=== PATIENT | male | born 1950 | race Caucasian/White ===

== ENCOUNTER 2017-02-04 16:10 | Emergency (ER) | payer MEDICARE, OTHER ==
[2017-02-04] MEDS ORDERED: ACETAMINOPHEN 325 MG TABLET PO ONE (17:07)
[2017-02-04] MEDS ORDERED: CYCLOBENZAPRINE HCL 10 MG TABLET PO ONE (17:08)
--- NOTE | 2017-02-04 17:12 | ER Document Report ---
ED Medical Screen (RME) - General Chief Complaint: Chest Pain Stated Complaint: CHEST PAIN Notes: This 66-year-old male patient reports he was working on his bike when he dropped a screw pizza driver. He reached over to pick it up off the floor and felt a sharp pain in the right anterior medial inferior rib margin near the xiphoid. He also noticed this pain when he went to walk up steps. On exam it is quite tender to palpate the involved area. I have greeted and performed a rapid initial assessment of this patient. A comprehensive ED assessment and evaluation of the patient, analysis of test results and completion of the medical decision making process will be conducted by additional ED providers. TRAVEL OUTSIDE OF THE [place] IN LAST 30 DAYS: No - Related Data Allergies/Adverse Reactions: oxycodone [Oxycodone] Allergy (Verified 02/04/17 16:35) Past Medical History - Past Medical History Cardiac Medical History: Denies: Hx Hypercholesterolemia, Hx Hypertension Pulmonary Medical History: Reports: Hx COPD, Hx Pneumonia Renal/ Medical History: Denies: Hx Peritoneal Dialysis - Immunizations Hx Diphtheria, Pertussis, Tetanus Vaccination: Yes Physical Exam - Vital signs Vitals: Temp Pulse Resp BP Pulse Ox 98.2 F 76 20 132/69 H 95 02/04/17 16:37 02/04/17 16:37 02/04/17 16:37 02/04/17 16:37 02/04/17 16:37 Course - Vital Signs Vital signs: Temp Pulse Resp BP Pulse Ox 98.2 F 76 20 132/69 H 95 02/04/17 16:37 02/04/17 16:37 02/04/17 16:37 02/04/17 16:37 02/04/17 16:37
--- NOTE | 2017-02-04 19:11 | ER Document Report ---
HPI - HPI Pain Level: 5 Context: Patient is a 58-year-old male presents emergency Department complaining of right -sided chest pain. Patient states he was bending over to pick something up and he felt a popping burning sensation in his chest. He was reproducible to palpation when he had it Patient states that the pain has since resolved. Otherwise he denies any other pain. Patient denies any left or right arm pain, jaw pain, back pain, burning substernal pain or shortness of breath or difficulty breathing. Patient denies any history of coronary artery disease. States that he has never had a coronary catheter, stress test. - DERM Skin Color: Normal Past Medical History - Social History Smoking Status: Current Every Day Smoker Family History: Reviewed & Not Pertinent Patient has suicidal ideation: No Patient has homicidal ideation: No - Past Medical History Cardiac Medical History: Denies: Hx Hypercholesterolemia, Hx Hypertension Pulmonary Medical History: Reports: Hx COPD, Hx Pneumonia Renal/ Medical History: Denies: Hx Peritoneal Dialysis - Immunizations Hx Diphtheria, Pertussis, Tetanus Vaccination: Yes Hx Pneumococcal Vaccination: 10/27/08 Vertical Provider Document - CONSTITUTIONAL Agree With Documented VS: Yes Exam Limitations: No Limitations General Appearance: WD/WN, No Apparent Distress Notes: PHYSICAL EXAM GENERAL: Alert, interacts well. HEAD: Normocephalic, atraumatic. EYES: Pupils equal, round, and reactive to light. Extraocular movements intact. ENT: Oral mucosa moist, tongue midline. NECK: Full range of motion. Supple. Trachea midline. LUNGS: Clear to auscultation bilaterally, no wheezes, rales, or rhonchi. No respiratory distress. HEART: Regular rate and rhythm. No murmurs, gallops, or rubs. ABDOMEN: Soft, nondistended, nontender. No guarding, rebound, or rigidity.. Bowel sounds present in all 4 quadrants. EXTREMITIES: Moves all 4 extremities spontaneously. No edema, radial and dorsalis pedis pulses 2/4 bilaterally. No cyanosis. NEUROLOGICAL: Alert and oriented x4. Normal speech. PSYCH: Normal affect, normal mood. SKIN: Warm, dry, normal turgor. No rashes or lesions noted. - INFECTION CONTROL TRAVEL OUTSIDE OF THE [place] IN LAST 30 DAYS: No - RESPIRATORY O2 Sat by Pulse Oximetry: 95 Course - Re-evaluation Re-evalutation: 02/04/17 21:56 Patient is a 66-year-old male with findings consistent with chest wall pain due to muscle strain. Patient is very well in appearance, vitals within normal limits. Low clinical suspicion for ACS given clinical history, exam, EKG without ST elevations or depressions, and negative initial troponin. HEART score less than or equal to 3. PE also seems unlikely given clinical history, absence of tachycardia or dyspnea. Well's score of 0. CXR without evidence of pneumothorax or pneumonia. No widened mediastinum. Aortic dissection also seems unlikely given history, symmetric pulses, CXR, and vitals. At this time will discharge with return precautions and follow-up recommendations. Verbal discharge instructions given a the bedside and opportunity for questions given. Medication warnings reviewed. Patient is in agreement with this plan and has verbalized understanding of return precautions and the need for primary care follow-up in the next 24-72 hours. - Vital Signs Vital signs: Temp Pulse Resp BP Pulse Ox 98.2 F 76 20 132/69 H 95 02/04/17 16:37 02/04/17 16:37 02/04/17 16:37 02/04/17 16:37 02/04/17 16:37 - Diagnostic Test Radiology reviewed: Image reviewed - Evidence of chronic scarring from atelectasis secondary to COPD noted on right lower aspect of the lung consistent with findings and CT from 6 months ago., Reports reviewed - EKG Interpretation by Me EKG shows normal: Sinus rhythm Rate: Normal Rhythm: NSR When compared to previous EKG there are: Previous EKG unavailable Discharge - Discharge Clinical Impression: Chest wall pain Condition: Good Disposition: HOME, SELF-CARE Additional Instructions: NORMAL EXAM AND WORKUP: At this time, your examination and workup show no significant abnormality. No significant abnormal physical findings were noted. All laboratory, EKG, and imaging (x-ray, CT scans, ultrasound) studies that were ordered show no significant abnormality. Although your examination and all studies that were ordered showed no significant abnormal finding, there are no examinations and no studies that are 100% accurate. There is always the possibility that some abnormality could exist and not be detected with physical examination or within the limits and capabilities of laboratory and other studies. You should return or follow up as you were instructed on your visit today for further evaluation if your symptoms do not resolve. CHEST WALL PAIN: Your chest pain may be coming from the chest wall. This is often caused by straining the muscles or joints in the chest during physical activity, direct trauma, coughing, or vigorous vomiting. Persons with arthritis are especially prone to this type of pain, due to inflammation of the cartilage joints near the breast bone. Occasionally, no cause can be found. Rest from strenuous physical activity. This kind of chest pain is usually made worse by movement of the chest. Depending on the symptoms, we may prescribe medicine for pain, muscle relaxation, and antiinflammatory effects. If the pain is new, and seems to be due to muscle strain, cold packs can help. Otherwise, apply gentle warmth to the painful area for 15 minutes every hour or two. You should call contact the doctor immediately if things change. Further evaluation is needed if you develop a fever or cough, if the nature of the pain changes, or if you become short of breath. FOLLOW-UP CARE: If you have been referred to a physician for follow-up care, call the physician s office for an appointment as you were instructed or within the next two days. If you experience worsening or a significant change in your symptoms, notify the physician immediately or return to the Emergency Department at any time for re-evaluation. Referrals: RUTHANN ROQUE PA [NO LOCAL MD] - Follow up in 1 week
[2017-02-05 00:13] VITALS: BP 133/60
--- NOTE | 2017-02-05 14:19 | EKG REPORT ---
SEVERITY:- NORMAL ECG - SINUS RHYTHM : Confirmed by: Lucho Escalona MD 05-Feb-2017 14:18:24
== END 2017-02-04 19:25 | disposition home or self-care (01) ==
LOC: ER 16:10
DX: R07.89 Other chest pain (principal); F17.200 Nicotine dependence, unspecified, uncomplicated
CPT/HCPCS: 93005; 99285; 71020; 93010; A9270 ×2

== ENCOUNTER 2017-03-21 09:22 | Emergency (ER) | payer OTHER, MEDICARE ==
[2017-03-21] MEDS ORDERED: HYDROCODONE/ACETAMINOPHEN 5-325 MG TABLET PO ONE (10:19)
[2017-03-21] MEDS ORDERED: ALBUTEROL SULFATE 0.083% NEB 2.5 MG/3 ML AMPUL NEB ONE (10:21)
--- NOTE | 2017-03-21 11:15 | RADIOLOGY REPORT (SQ) ---
EXAM DESCRIPTION: RIBS RIGHT W/PA CHEST COMPLETED DATE/TIME: 03/21/2017 10:56 am REASON FOR STUDY: right rib pain COMPARISON: 02/04/2017. TECHNIQUE: Frontal view of the chest and additional views of the right ribs acquired. NUMBER OF VIEWS: Three view. LIMITATIONS: None. FINDINGS: FRONTAL CXR: No pneumothorax. No infiltrate. No mass. There is a minimal right pleural effusion, and there is mild scarring in the right lung. RIBS: There is a fracture of the distal 9th rib on the right. There appears to be a small amount of callus around this fracture suggesting that it is subacute. OTHER: No other significant finding. IMPRESSION: 1. Subacute fracture of the right 9th rib. 2. There is a minimal right pleural effusion and pulmonary scarring on the right. COMMENT: SITE OF TRAUMA/COMPLAINT MARKED/STAMP COMPLETED: No TECHNICAL DOCUMENTATION: JOB ID: [id number] [employer]- All Rights Reserved
--- NOTE | 2017-03-21 11:42 | ER Document Report ---
HPI - HPI Patient complains to provider of: right rib pain Onset: This morning Onset/Duration: Sudden Quality of pain: Sharp Severity: Moderate Pain Level: 4 Context: Patient states he was coughing this morning and felt a pop in his right rib area. Denies increased shortness of breath. Associated Symptoms: Productive cough, Hurts to breath, Shortness of breath - Patient states this is normal for him, he has COPD. denies: Fever Exacerbated by: Coughing, Deep breathing Relieved by: Remaining still Similar symptoms previously: No Recently seen / treated by doctor: Yes - Saw Dr. Ríos yesterday - ROS ROS below otherwise negative: Yes Systems Reviewed and Negative: Yes All other systems reviewed and negative - CONSTITUTIONAL Constitutional: DENIES: Fever - EENT EENT: DENIES: Congestion - NEURO Neurology: DENIES: Headache - CARDIOVASCULAR Cardiovascular: REPORTS: Chest pain - Right sided ribs - RESPIRATORY Respiratory: REPORTS: Coughing. DENIES: Trouble Breathing - GASTROINTESTINAL Gastrointestinal: DENIES: Abdominal Pain - URINARY Urinary: DENIES: Dysuria - MUSCULOSKELETAL Musculoskeletal: DENIES: Extremity pain - DERM Skin Color: Normal Skin Problems: None Past Medical History - General Information source: Patient - Social History Smoking Status: Current Every Day Smoker Frequency of alcohol use: None Drug Abuse: None Lives with: Spouse/Significant other Family History: Reviewed & Not Pertinent Patient has suicidal ideation: No Patient has homicidal ideation: No Pulmonary Medical History: Reports: Hx COPD, Hx Pneumonia Surgical Hx: Negative - Immunizations Hx Diphtheria, Pertussis, Tetanus Vaccination: Yes Hx Pneumococcal Vaccination: 10/27/08 Vertical Provider Document - CONSTITUTIONAL Agree With Documented VS: Yes Exam Limitations: No Limitations General Appearance: WD/WN, No Apparent Distress - INFECTION CONTROL TRAVEL OUTSIDE OF THE [place] IN LAST 30 DAYS: No - HEENT HEENT: Atraumatic, Normal ENT Exam, Normocephalic - NECK Neck: Normal Inspection - RESPIRATORY Respiratory: No Respiratory Distress, Rhonchi, Wheezing O2 Sat by Pulse Oximetry: 92 Notes: Right lateral ribs tender to palpation. Patient reports increased pain with deep breathing during exam. - CARDIOVASCULAR Cardiovascular: Regular Rate, Regular Rhythm - GI/ABDOMEN Gastrointestinal: Abdomen Soft - MUSCULOSKELETAL/EXTREMETIES Musculoskeletal/Extremeties: MAEW - NEURO Level of Consciousness: Awake, Alert, Appropriate - DERM Integumentary: Warm, Dry Course - Re-evaluation Re-evalutation: 03/21/17 11:41 X-ray showed subacute ninth right rib fracture, small pleural effusion and pulmonary scarring. Findings were discussed with the patient. 03/21/17 11:53 lungs still with expiratory wheezing after neb, no rhonchi. - Vital Signs Vital signs: Temp Pulse Resp BP Pulse Ox 98 F 79 20 126/70 H 92 03/21/17 09:49 03/21/17 09:49 03/21/17 09:49 03/21/17 09:49 03/21/17 09:49 Discharge - Discharge Clinical Impression: Productive cough Right rib fracture Qualifiers: Encounter type: initial encounter Rib fracture type: single rib Fracture type: closed Qualified Code(s): S22.31XA - Fracture of one rib, right side, initial encounter for closed fracture COPD (chronic obstructive pulmonary disease) Qualifiers: COPD type: unspecified COPD Qualified Code(s): J44.9 - Chronic obstructive pulmonary disease, unspecified Condition: Good Disposition: HOME, SELF-CARE Instructions: Chest Wall Pain ([facility]) Additional Instructions: Take medications as prescribed Splint ribs with coughing and deep breathing Nebs as previously prescribed by your doctor Follow-up with your doctor next week for recheck Return if worsens and as needed. Prescriptions: Azithromycin [Zithromax 250 mg Tablet] 250 mg PO ASDIR PRN #6 tablet PRN Reason: Hydrocodone/Acetaminophen [[place]ne 5-325 mg Tablet] 1 tab PO PRN PRN #15 tablet PRN Reason: Referrals: WHITNEY RÍOS MD [Primary Care Provider] - Follow up as needed
[2017-03-21 12:15] VITALS: BP 144/60
== END 2017-03-21 12:15 | disposition home or self-care (01) ==
LOC: ER 09:22
DX: S22.31XA Fracture of one rib, right side, initial encounter for closed fracture (principal); J44.9 Chronic obstructive pulmonary disease, unspecified; R05 Cough; R07.81 Pleurodynia; F17.200 Nicotine dependence, unspecified, uncomplicated; X58.XXXA Exposure to other specified factors, initial encounter
CPT/HCPCS: 94640; 99284

== ENCOUNTER 2017-04-04 22:21 | Emergency (ER) | payer OTHER, MEDICARE ==
[2017-04-04 22:28] VITALS: BP 148/91
[2017-04-04] MEDS ORDERED: IPRATROPIUM/ALBUTEROL 0.5-2.5 MG/3 ML AMPUL NEB ONE (22:28)
[2017-04-04] MEDS ORDERED: ALBUTEROL SULFATE 0.083% NEB 2.5 MG/3 ML AMPUL NEB SCH (22:43)
[2017-04-05] MEDS ORDERED: LIDOCAINE 5% (700 MG) TRANSDERMAL ADH..PATCH TP ONE (01:24)
[2017-04-05] MEDS ORDERED: BENZONATATE 100 MG CAPSULE PO ONE (01:24)
[2017-04-05] MEDS ORDERED: IPRATROPIUM/ALBUTEROL 0.5-2.5 MG/3 ML AMPUL NEB ONE (01:24)
--- NOTE | 2017-04-05 01:30 | ER Document Report ---
ED General - General Chief Complaint: Shortness Of Breath Stated Complaint: DIFFICULTY BREATHING Time Seen by Provider: 04/05/17 00:58 Notes: Patient is a 66-year-old male with past medical history of COPD, has quit smoking in the past 2 weeks recently diagnosed with a right rib fracture secondary to spasms of coughing who presents with ongoing right rib pain as well as mild shortness of breath. Patient states that the pain had overall been controlled until he ran out of [place]. He also notes that his coughing was well-controlled while on this medication. He has not had worsening of his symptoms. He does describe the pain in his right rib as a severe, constant, stabbing pain. States coughing, moving or taking a deep breath worsens the pain. He did follow-up with his primary care doctor regarding today's concerns. He is been using inhaler at home for his shortness of breath with some improvement. Denies any hemoptysis, history of DVT or pulmonary embolus. No new injury. TRAVEL OUTSIDE OF THE [place] IN LAST 30 DAYS: No - Related Data Allergies/Adverse Reactions: budesonide [From Symbicort] Allergy (Verified 03/21/17 11:55) formoterol [From Symbicort] Allergy (Verified 03/21/17 11:55) naproxen Allergy (Verified 03/21/17 11:55) Past Medical History - General Information source: Patient - Social History Smoking Status: Former Smoker Frequency of alcohol use: None Drug Abuse: None Lives with: Spouse/Significant other Family History: Reviewed & Not Pertinent Patient has suicidal ideation: No Patient has homicidal ideation: No - Past Medical History Cardiac Medical History: Denies: Hx Hypercholesterolemia, Hx Hypertension Pulmonary Medical History: Reports: Hx COPD, Hx Pneumonia Renal/ Medical History: Denies: Hx Peritoneal Dialysis - Immunizations Hx Diphtheria, Pertussis, Tetanus Vaccination: Yes Hx Pneumococcal Vaccination: 10/27/08 Review of Systems - Review of Systems Notes: Constitutional: Negative for fever. HENT: Negative for sore throat. Eyes: Negative for visual changes. Cardiovascular: Negative for chest pain. Respiratory: Positive for shortness of breath. Gastrointestinal: Negative for abdominal pain, vomiting or diarrhea. Genitourinary: Negative for dysuria. Musculoskeletal: Positive for right lower rib pain Skin: Negative for rash. Neurological: Negative for headaches, weakness or numbness. 10 point ROS negative except as marked above and in HPI. Physical Exam - Vital signs Vitals: Temp Pulse Resp BP Pulse Ox 97.5 F 90 24 H 148/91 H 97 04/04/17 22:26 04/04/17 22:26 04/04/17 22:26 04/04/17 22:26 04/04/17 22:26 Interpretation: Tachypneic Notes: PHYSICAL EXAMINATION: GENERAL: Well-appearing, well-nourished and in no acute distress. HEAD: Atraumatic, normocephalic. EYES: Pupils equal round and reactive to light, extraocular movements intact, sclera anicteric, conjunctiva are normal. ENT: nares patent, oropharynx clear without exudates. Moist mucous membranes. NECK: Normal range of motion, supple without lymphadenopathy LUNGS: Breath sounds clear to auscultation bilaterally and equal. Faint expiratory wheezing in all lung guzman. No respiratory distress or tachypnea. HEART: Regular rate and rhythm without murmurs Chest wall: Focal pain on palpation of the right lower ribs ABDOMEN: Soft, nontender, normoactive bowel sounds. No guarding, no rebound. No masses appreciated. EXTREMITIES: Normal range of motion, no pitting or edema. No cyanosis. NEUROLOGICAL: No focal neurological deficits. Moves all extremities spontaneously and on command. PSYCH: Normal mood, normal affect. SKIN: Warm, Dry, normal turgor, no rashes or lesions noted. Course - Re-evaluation Re-evalutation: 04/05/17 01:27 Presents with ongoing right lower rib pain secondary to coughing in the setting of a known rib fracture and an ongoing COPD exacerbation. Patient initially presented with mild tachypnea which should resolve after single nebulizer treatment. He maintained slight expiratory wheezing without any diminished air movement, hypoxia or tachypnea. Patient does have point tenderness over the lower right ribs. He will be started on a course of prednisone, provided Tessalon Perles for his persistent cough, and I have encouraged him to begin applying topical lidocaine to the affected area. Patient has nebulizers at home. I do not suspect an acute alternative pathology at this time based on history and exam including acute pulmonary embolus, ACS, pneumothorax, or aortic dissection. At this time will discharge with return precautions and follow-up recommendations. Verbal discharge instructions given a the bedside and opportunity for questions given. Medication warnings reviewed. Patient is in agreement with this plan and has verbalized understanding of return precautions and the need for primary care follow-up in the next 24-72 hours. - Vital Signs Vital signs: Temp Pulse Resp BP Pulse Ox 97.5 F 90 24 H 148/91 H 97 04/04/17 22:26 04/04/17 22:26 04/04/17 22:26 04/04/17 22:26 04/04/17 22:26 - Diagnostic Test Radiology reviewed: Image reviewed, Reports reviewed Radiology results interpreted by me: 04/05/17 01:28 Chest x-ray: Acute infiltrate or pneumothorax. Discharge - Discharge Clinical Impression: Shortness of breath, Rib pain on right side Condition: Good Disposition: HOME, SELF-CARE Additional Instructions: Your chest wall pain is due to a fracture 1 of the ribs. This pain can last for up to 6 weeks. It is very important that you continue to take purposeful deep breaths. For your pain: Continue to take ibuprofen 600 mg every 6 hours or Tylenol 1000 mg every 6 hours. Apply local lidocaine to the area per bottle instructions. There is a product sold [id number] called "Aspercreme with lidocaine" that you can use for this purpose. Please follow-up with her primary care doctor in the next 2-3 days. Return to the emergency department immediately if you develop worsening shortness of breath, increased pain, begin coughing blood, pass out, or have any other symptoms that are worrisome to you. Take the steroids that have been prescribed for the next 5 days. You can use the Tessalon Perles that were prescribed as needed for persistent coughing. Referrals: WHITNEY RÍOS MD [Primary Care Provider] - Follow up as needed
--- NOTE | 2017-04-05 01:32 | RADIOLOGY REPORT (SQ) ---
EXAM DESCRIPTION: CHEST SINGLE VIEW COMPLETED DATE/TIME: 04/05/2017 1:08 am REASON FOR STUDY: shortness of breath COMPARISON: 02/04/2017. 11/02/2014. 06/24/2011. CT, 09/13/2016. EXAM PARAMETERS: NUMBER OF VIEWS: One view. TECHNIQUE: Single frontal radiographic view of the chest acquired. RADIATION DOSE: NA LIMITATIONS: None. FINDINGS: LUNGS AND PLEURA: Minimal scar of the right mid -lower lung field. Small chronic blunting of the right costophrenic angle. Small right lower lobar -basilar opacity consistent with fibrosis -scar and prior CT, 09/13/2016. No suspicious interval change. MEDIASTINUM AND HILAR STRUCTURES: No masses. Contour normal. HEART AND VASCULAR STRUCTURES: Mild obscuration of the right cardiophrenic margin, chronic. BONES: No acute findings. HARDWARE: None in the chest. OTHER: No other significant finding. IMPRESSION: No acute cardiopulmonary findings. TECHNICAL DOCUMENTATION: JOB ID: [id number]
--- NOTE | 2017-04-07 09:56 | EKG REPORT ---
SEVERITY:- NORMAL ECG - SINUS RHYTHM : Confirmed by: Vladimir Bhat 07-Apr-2017 09:54:13
== END 2017-04-05 02:19 | disposition home or self-care (01) ==
LOC: ER 22:21
DX: R06.02 Shortness of breath (principal); R07.81 Pleurodynia; J44.9 Chronic obstructive pulmonary disease, unspecified; S22.31XG Fracture of one rib, right side, subsequent encounter for fracture with delayed healing; X58.XXXD Exposure to other specified factors, subsequent encounter; Z87.891 Personal history of nicotine dependence
CPT/HCPCS: 93005; 94640; 99285; 71010; 93010; J7620

== ENCOUNTER 2017-04-08 09:10 | Emergency (ER) | payer OTHER, MEDICARE ==
[2017-04-08] MEDS ORDERED: IPRATROPIUM/ALBUTEROL 0.5-2.5 MG/3 ML AMPUL NEB ONE (09:31)
--- NOTE | 2017-04-08 09:38 | ER Document Report ---
ED Medical Screen (RME) - General Chief Complaint: Chest Pain Stated Complaint: CHEST PAIN Time Seen by Provider: 04/08/17 09:28 Mode of Arrival: Wheelchair Information source: Patient Notes: This is a 66-year-old male with a history of COPD who presents with chest pain. He states that the pain is sharp, worse with movement or deep breath, and located in the left anterior chest. The pain began suddenly yesterday at about 6:30 PM as he bent over to pick something up. Note he was seen here recently with right rib fracture from coughing. He denies fevers or chills. I have greeted and performed a rapid initial assessment of this patient. A comprehensive ED assessment and evaluation of the patient, analysis of test results and completion of the medical decision making process will be conducted by additional ED providers. TRAVEL OUTSIDE OF THE [place] IN LAST 30 DAYS: No - Related Data Allergies/Adverse Reactions: budesonide [From Symbicort] Allergy (Verified 04/08/17 09:21) formoterol [From Symbicort] Allergy (Verified 04/08/17 09:21) naproxen Allergy (Verified 04/08/17 09:21) Past Medical History - Past Medical History Cardiac Medical History: Denies: Hx Hypercholesterolemia, Hx Hypertension Pulmonary Medical History: Reports: Hx COPD, Hx Pneumonia Renal/ Medical History: Denies: Hx Peritoneal Dialysis - Immunizations Hx Diphtheria, Pertussis, Tetanus Vaccination: Yes Physical Exam - Vital signs Vitals: Temp Pulse Resp BP Pulse Ox 98.1 F 66 24 H 186/97 H 94 04/08/17 09:21 04/08/17 09:21 04/08/17 09:21 04/08/17 09:21 04/08/17 09:21 - General Notes: mild respiratory distress, uncomfortable secondary to pain, pleasant and conversant - Respiratory Notes: scattered wheezes bilaterally, tachypneic Course - Vital Signs Vital signs: Temp Pulse Resp BP Pulse Ox 98.1 F 66 24 H 186/97 H 94 04/08/17 09:21 04/08/17 09:21 04/08/17 09:21 04/08/17 09:21 04/08/17 09:21
[2017-04-08] MEDS ORDERED: ASPIRIN 81 MG TABLET, CHEWABLE PO ONE (09:50)
--- NOTE | 2017-04-08 10:08 | ER Document Report ---
ED Cardiac - General Chief Complaint: Chest Pain Stated Complaint: CHEST PAIN Time Seen by Provider: 04/08/17 09:28 Mode of Arrival: Wheelchair Notes: Patient is a 66-year-old male with a history of COPD who comes to the ED complaining of left-sided chest pain and shortness of breath. Pt states that he does cough, but has been resisting due to the pain it causes in the chest. When he is able to cough he is able to get some white sputum. Patient states that he was seen March 21 for a COPD exacerbation he was placed on antibiotics at that time because he was coughing so hard that he fractured a rib on his right side. He returned 3 days ago with worsening sob and chest wall pain. At that time no antibiotics were clinically warranted based on his presentation. Patient states that the chest pain began when he bent over to pick something up yesterday evening. The pain is described as sharp. Pain does not radiate. Patient states that initially he was able to push on his chest and the pain would go away, but now the pain is persistent despite pressure. Pt states that he is still eating/drinking with no problems. Last BM was normal and 1.5 days ago. Urinating normally per patient. He has been using his inhalers at home without relief. Pt denies any PMH of aneurysms, CVA, MA, PE. Denies any leg/ calf pains. Denies any fever, nasal rory/discharge, sore throat, ear pain, dizziness, syncope, palpitations, abd pain, n/v/d, dysuria, muscle weakness, or rash. TRAVEL OUTSIDE OF THE [place] IN LAST 30 DAYS: No - HPI Patient complains to provider of: Chest pain, Shortness of breath Use of: denies: Alcohol, Amphetamines, Bath salts, Caffeine, Cocaine, Decongestants, Other Chest pain location: Pleuritic, Other - chest wall Quality of pain: Sharp Chest pain radiation location: None Chest pain precipitating factors: Coughing - and deep breathing Cardiac risk factors: Smoker, + Family history, Dyslipidemia Relieved by: Other - not coughing/deep breathing - Related Data Allergies/Adverse Reactions: budesonide [From Symbicort] Allergy (Verified 04/08/17 09:21) formoterol [From Symbicort] Allergy (Verified 04/08/17 09:21) naproxen Allergy (Verified 04/08/17 09:21) Past Medical History - General Information source: Patient - Social History Smoking Status: Current Every Day Smoker Family History: Reviewed & Not Pertinent Patient has suicidal ideation: No Patient has homicidal ideation: No - Past Medical History Cardiac Medical History: Denies: Hx Hypercholesterolemia, Hx Hypertension Pulmonary Medical History: Reports: Hx COPD, Hx Pneumonia Renal/ Medical History: Denies: Hx Peritoneal Dialysis - Immunizations Hx Diphtheria, Pertussis, Tetanus Vaccination: Yes Hx Pneumococcal Vaccination: 10/27/08 Review of Systems - Review of Systems Notes: REVIEW OF SYSTEMS: CONSTITUTIONAL : Denies fever, chills, or sweats. EENT: Denies eye, ear, throat, or mouth pain or symptoms. Denies nasal or sinus congestion or discharge. Denies throat, tongue, or mouth swelling or difficulty swallowing. CARDIOVASCULAR: see hpi RESPIRATORY: see hpi GASTROINTESTINAL: Denies abdominal pain or distention. Denies nausea, vomiting , or diarrhea. Denies blood in vomitus, stools, or per rectum. Denies black, tarry stools. Denies constipation. GENITOURINARY: Denies difficulty urinating, painful urination, burning, frequency, blood in urine, or discharge. MUSCULOSKELETAL: Denies back or neck pain or stiffness. Denies joint pain or swelling. see hpi SKIN: Denies rash, lesions or sores. NEUROLOGICAL: Denies confusion or altered mental status. Denies passing out or loss of consciousness. Denies dizziness or lightheadedness. Denies headache. Denies weakness or paralysis or loss of use of either side. Denies problems with gait or speech. Denies sensory loss, numbness, or tingling. Denies seizures. ALL OTHER SYSTEMS REVIEWED AND NEGATIVE. Dictation was performed using [employer] voice recognition software Physical Exam - Vital signs Vitals: Temp Pulse Resp BP Pulse Ox 98.1 F 66 24 H 186/97 H 94 04/08/17 09:21 04/08/17 09:21 04/08/17 09:21 04/08/17 09:21 04/08/17 09:21 Notes: PHYSICAL EXAMINATION: GENERAL: Well-appearing, well-nourished and in no mild/mod distress. Duoneb being utilized. HEAD: Atraumatic, normocephalic. EYES: Pupils equal round and reactive to light, extraocular movements intact, sclera anicteric, conjunctiva are normal. ENT: EAC clear b/l. TM's intact b/l without erythema, fluid, or perforation. Nares patent and without discharge. oropharynx clear without exudates. No tonsilar hypertrophy or erythema. Moist mucous membranes. No sinus tenderness. NECK: Normal range of motion, supple without lymphadenopathy. Non-tender. No rigidity. LUNGS: Wheezing, rhonchi, crackles to the lt lung, wheezes/rhonchi rt lung. HEART: Regular rate and rhythm without murmurs, rubs, gallops. ABDOMEN: Soft, nontender, nondistended abdomen. No guarding, no rebound. No masses appreciated. Normal bowel sounds present. No CVA tenderness bilaterally. Musculoskeletal: FROM to passive/active. Strength 5+/5. Extremities: No cyanosis, clubbing, or edema b/l. Peripheral pulses 2+. Capillary refill less than 3 seconds. NEUROLOGICAL: Cranial nerves grossly intact. Normal speech. Normal sensory, motor exams PSYCH: Normal mood, normal affect. SKIN: Warm, Dry, normal turgor, no rashes or lesions noted. Course - Re-evaluation Re-evalutation: 04/08/17 16:40 Patient is an afebrile, well-hydrated, 66-year-old male who presents to the ED with complaints of chest wall pain & shortness of breath. Chest x-ray showed possible left lower lobe pneumonia and continued small right pleural effusion that was also noted on x-ray on March 21.. Adventitious lung sounds were heard on expiration bilaterally with the left being greater than the right. DuoNeb given today which did help with some of his shortness of breath. Re- ascultation did notice a decrease in adventitious lung sounds. Pt states that his breathing is better than it was. Oxycodone given which helped decrease the chest wall pain. CBC showed mildly elevated WBC's (13) with left shift. Urine negative. CMP showed mildly low sodium. CPK elevated, but other cardiac enzymes negative. Levaquin 750mg IV given. Lidoderm patch placed to chest. Toradol 15mg IV given. Pt is sitting at 93-94% O2 sat. at rest w/o Oxygen. Ambulatory O2 sat. w/o O2 is staying >92%. Pt states that he is feeling okay. We will send him home on Levaquin 750mg daily x4 days. I will also send him home with a medrol dose pack. Maintain fluid intake, continue inhalers/ nebulizer (pt states he has sufficient amount of both at home). Conservative measures otherwise as reviewed in d/c. Recheck with PCM in 2-3 days. Return to the ED with any worsening symptoms. Reviewed with Dr. Avalos who is in agreement with plan and discharge. - Vital Signs Vital signs: Temp Pulse Resp BP Pulse Ox 98.1 F 66 25 H 135/89 H 90 L 04/08/17 09:21 04/08/17 09:21 04/08/17 16:01 04/08/17 16:01 04/08/17 16:01 - Laboratory Result Diagrams: 04/08/17 10:10 04/08/17 10:10 Laboratory results interpreted by me: 04/08/17 04/08/17 04/08/17 10:10 10:10 11:40 WBC 13.0 H RDW 15.0 H Seg Neutrophils % 83.3 H Lymphocytes % 12.3 L Absolute Neutrophils 10.8 H Sodium 135.9 L BUN 22 H Glucose 119 H Creatine Kinase 314 H Ur Leukocyte Esterase TRACE H Discharge - Discharge Clinical Impression: Acute exacerbation of chronic obstructive pulmonary disease (COPD), Chest wall pain Pneumonia Qualifiers: Pneumonia type: due to unspecified organism Laterality: left Lung location: lower lobe of lung Qualified Code(s): J18.1 - Lobar pneumonia, unspecified organism Condition: Stable Disposition: HOME, SELF-CARE Instructions: Anti-Inflammatory Medication ([facility]), Chest Wall Pain ([facility]) Additional Instructions: Maintain adequate fluid intake Ice several times per day Take meds as directed tylenol/ibuprofen as needed Continue inhalers/nebulizer regularly over the counter cold medication as needed for symptoms Humidified air may help F/u: with your PCM in 2-3 days for a recheck Return to the ED with any fever, worsening pain, chest pain, shortness of breath , trouble swallowing/breathing, abdominal pain, n/v/d, or worsening symptoms otherwise. Prescriptions: Levofloxacin [Levaquin 750 mg Tablet] 750 mg PO DAILY #4 tablet Methylprednisolone [Medrol Dosepack (4 mg/Tab) 21 Tab/Dosepak] 4 mg PO ASDIR PRN #21 tab.ds.pk PRN Reason: Forms: Elevated Blood Pressure, Smoking Cessation Education Referrals: WHITNEY RÍOS MD [Primary Care Provider] - Follow up as needed
--- NOTE | 2017-04-08 10:16 | RADIOLOGY REPORT (SQ) ---
EXAM DESCRIPTION: CHEST SINGLE VIEW COMPLETED DATE/TIME: 04/08/2017 9:44 am REASON FOR STUDY: left pleuritic pain COMPARISON: 02/04/2017 EXAM PARAMETERS: NUMBER OF VIEWS: One view. TECHNIQUE: Single frontal radiographic view of the chest acquired. RADIATION DOSE: NA LIMITATIONS: None. FINDINGS: LUNGS AND PLEURA: There appears to be a very small right pleural effusion. There is scarr ing versus subsegmental atelectasis in the right base. There is ill-defined retrocardiac density on the left. The medial aspect of the left hemidiaphragm is slightly indistinct. MEDIASTINUM AND HILAR STRUCTURES: No masses. Contour normal. HEART AND VASCULAR STRUCTURES: Heart normal in size. Normal vasculature. BONES: No acute findings. HARDWARE: None in the chest. OTHER: No other significant finding. IMPRESSION: Possible left lower lobe pneumonia. TECHNICAL DOCUMENTATION: JOB ID: [id number]
[2017-04-08] MEDS ORDERED: OXYCODONE HCL IR 5 MG TABLET PO ONE (10:28)
[2017-04-08 10:40] LABS: ABSOLUTE EOSINOPHILS # (AUTO) 0.1 10^3/uL (0.0-0.6); ABSOLUTE LYMPHOCYTES (AUTO) 1.6 10^3/uL (0.5-4.7); ABSOLUTE MONOCYTES (AUTO) 0.5 10^3/uL (0.1-1.4); ABSOLUTE NEUT (AUTO) 10.8 10^3/uL (1.7-8.2); BASOPHILS % (AUTO) 0.3 % (0-2); EOSINOPHILS % (AUTO) 0.5 % (0-6); HEMATOCRIT 42.9 % (37.9-51.0); HGB HCT DIFFERENCE -0.9; LYMPHOCYTES % (AUTO) 12.3 % (13-45); MEAN CORPUSCULAR HEMOGLOBIN 29.3 pg (27.0-33.4); MEAN CORPUSCULAR HGB CONC 32.6 g/dL (32.0-36.0); MEAN CORPUSCULAR VOLUME 90 fl (80-97); MONOCYTES % (AUTO) 3.6 % (3-13); RED BLOOD COUNT 4.78 10^6/uL (4.35-5.55); SEGMENTED NEUTROPHILS % (AUTO) 83.3 % (42-78)
[2017-04-08 10:54] LABS: ALANINE AMINOTRANSFERASE 29 U/L (21-72); ALBUMIN 4.3 g/dL (3.5-5.0); ALKALINE PHOSPHATASE 85 U/L (38-126); ANION GAP 12 (5-19); ASPARTATE AMINO TRANSFERASE 17 U/L (17-59); BILIRUBIN,DIRECT 0.3 mg/dL (0.0-0.4); BILIRUBIN,TOTAL 0.5 mg/dL (0.2-1.3); BLOOD UREA NITROGEN 22 mg/dL (7-20); CALCIUM 9.9 mg/dL (8.4-10.2); CARBON DIOXIDE 23 mmol/L (22-30); CHLORIDE 101 mmol/L (98-107); CREATINE KINASE 314 U/L (55-170); CREATININE RESULT 0.96 mg/dL (0.52-1.25); GLUCOSE 119 mg/dL (75-110); POTASSIUM 4.9 mmol/L (3.6-5.0); SODIUM 135.9 mmol/L (137-145); TOTAL PROTEIN 7.3 g/dL (6.3-8.2)
[2017-04-08] MEDS ORDERED: LEVOFLOXACIN 750 MG/D5W RTU 150 ML IV ONE (10:56)
--- NOTE | 2017-04-08 11:05 | EKG REPORT ---
SEVERITY:- OTHERWISE NORMAL ECG - SINUS RHYTHM ATRIAL PREMATURE COMPLEX : Confirmed by: Vladimir Bhat 08-Apr-2017 11:04:27
[2017-04-08 11:06] LABS: CREATINE KINASE MB 1.89 ng/mL (<4.55); TROPONIN I < 0.012 ng/mL
[2017-04-08 12:00] LABS: APPEARANCE,URINE SLIGHTLY-CLOUDY; BILIRUBIN,URINE NEGATIVE (NEGATIVE); GLUCOSE, URINE NEGATIVE (NEGATIVE); KETONES,URINE NEGATIVE (NEGATIVE); LEUKOCYTE ESTERASE,URINE TRACE (NEGATIVE); NITRITE,URINE NEGATIVE (NEGATIVE); PROTEIN,URINE NEGATIVE (NEGATIVE); URINE SPECIFIC GRAVITY 1.018; UROBILINOGEN,URINE NEGATIVE mg/dL (<2.0)
[2017-04-08] MEDS ORDERED: NORMAL SALINE 1000 ML 1,000 ML IV ONE (12:38)
[2017-04-08] MEDS ORDERED: KETOROLAC TROMETHAMINE INJ/PF 30 MG/1 ML SDV IM ONE (14:05)
[2017-04-08] MEDS ORDERED: LIDOCAINE 5% (700 MG) TRANSDERMAL ADH..PATCH TP ONE (14:05)
[2017-04-08 17:24] VITALS: BP 148/80
== END 2017-04-08 17:21 | disposition home or self-care (01) ==
LOC: ER 09:10
DX: J44.1 Chronic obstructive pulmonary disease with (acute) exacerbation (principal); J18.1 Lobar pneumonia, unspecified organism; R07.89 Other chest pain; F17.200 Nicotine dependence, unspecified, uncomplicated
CPT/HCPCS: 93005; 94640; 99285; 96372; 96365; 36415; 87040; 82553; 82550; 85025; 80053; 81001; 84484; 71010; 93010; J1885; J7030; J1956; J7620

== ENCOUNTER → 2017-04-16 | Outpatient (CLI) | payer MEDICARE, OTHER ==
--- NOTE | 2017-04-16 12:10 | RADIOLOGY REPORT (SQ) ---
EXAM DESCRIPTION: CHEST PA/LATERAL COMPLETED DATE/TIME: 04/16/2017 10:29 am REASON FOR STUDY: CHRONIC OBSTRUCTIVE PULMONARY DISEASE, UNSPECIFIED COMPARISON: CT chest 06/25/2011, 09/13/2016 Two-view chest 11/02/2014, 02/04/2017, 04/05/2017, 04/08/2017 EXAM PARAMETERS: NUMBER OF VIEWS: two views TECHNIQUE: Digital Frontal and Lateral radiographic views of the chest acquired. RADIATION DOSE: NA LIMITATIONS: none FINDINGS: LUNGS AND PLEURA: There is chronic pleural-parenchymal scarring in the right chest, simila r compared to studies dating back to 2010. A rind of pleural thickening is present along the right l ateral chest wall, with pleural thickening and round atelectasis in the right posterior costophrenic sulcus. No acute infiltrates. No pleural effusions. No pneumothorax. MEDIASTINUM AND HILAR STRUCTURES: No masses or contour abnormalities. HEART AND VASCULAR STRUCTURES: Heart normal size. No evidence for failure. BONES: No acute findings. HARDWARE: None in the chest. OTHER: No other significant finding. IMPRESSION: No acute findings. TECHNICAL DOCUMENTATION: JOB ID: [id number] [employer]- All Rights Reserved
== END ==
LOC: OD 09:55
PROVIDERS: ATTEND Physician Assistant
DX: J44.9 Chronic obstructive pulmonary disease, unspecified (principal)
CPT/HCPCS: 71020

== ENCOUNTER → 2017-06-25 | Outpatient (CLI) | payer MEDICARE, OTHER ==
--- NOTE | 2017-06-25 09:54 | RADIOLOGY REPORT (SQ) ---
EXAM DESCRIPTION: CHEST PA/LATERAL COMPLETED DATE/TIME: 06/25/2017 9:37 am REASON FOR STUDY: CHRONIC OBSTRUCTIVE PULMONARY DISEASE, UNSPECIFIED COMPARISON: 04/16/2017 EXAM PARAMETERS: NUMBER OF VIEWS: two views TECHNIQUE: Digital Frontal and Lateral radiographic views of the chest acquired. RADIATION DOSE: NA LIMITATIONS: none FINDINGS: LUNGS AND PLEURA: There chronic pleural and parenchymal changes on the right. No acute co nsolidation. MEDIASTINUM AND HILAR STRUCTURES: No masses or contour abnormalities. HEART AND VASCULAR STRUCTURES: Heart normal size. No evidence for failure. BONES: No acute findings. HARDWARE: None in the chest. OTHER: No other significant finding. IMPRESSION: No acute findings in the chest. Stable chronic pleural and parenchymal changes most mar ked in the right base. TECHNICAL DOCUMENTATION: JOB ID: [id number] [employer]- All Rights Reserved
== END ==
LOC: OD 09:22
PROVIDERS: ATTEND Physician Assistant
DX: J44.9 Chronic obstructive pulmonary disease, unspecified (principal)
CPT/HCPCS: 71020

== ENCOUNTER 2017-07-13 11:10 | Emergency (ER) | payer MEDICARE, OTHER ==
[2017-07-13] MEDS ORDERED: ALBUTEROL SULFATE 0.083% NEB 2.5 MG/3 ML AMPUL NEB ONE (11:43)
[2017-07-13] MEDS ORDERED: IPRATROPIUM/ALBUTEROL 0.5-2.5 MG/3 ML AMPUL NEB ONE ×3 (11:43→12:33)
[2017-07-13] MEDS ORDERED: PREDNISONE 20 MG TABLET PO ONE (11:43)
--- NOTE | 2017-07-13 11:45 | ER Document Report ---
ED Medical Screen (RME) - General Chief Complaint: Chest Pain Stated Complaint: CHEST PAIN Time Seen by Provider: 07/13/17 11:43 TRAVEL OUTSIDE OF THE [place] IN LAST 30 DAYS: No - HPI Notes: 07/13/17 11:45 Cough with productive sputum chest pain earlier this morning chest pain-free currently similar to when patient was diagnosed with pneumonia earlier this year - Related Data Allergies/Adverse Reactions: budesonide [From Symbicort] Allergy (Verified 04/08/17 09:21) formoterol [From Symbicort] Allergy (Verified 04/08/17 09:21) naproxen Allergy (Verified 04/08/17 09:21) Past Medical History - Past Medical History Cardiac Medical History: Denies: Hx Hypercholesterolemia, Hx Hypertension Pulmonary Medical History: Reports: Hx COPD, Hx Pneumonia Renal/ Medical History: Denies: Hx Peritoneal Dialysis - Immunizations Hx Diphtheria, Pertussis, Tetanus Vaccination: Yes Review of Systems - Review of Systems Respiratory: Cough, Short of breath Physical Exam - Vital signs Vitals: Temp Pulse Resp BP Pulse Ox 99 F 94 20 134/67 H 95 07/13/17 11:24 07/13/17 11:24 07/13/17 11:24 07/13/17 11:24 07/13/17 11:24 Interpretation: Normal - General General appearance: Appears well, Alert - HEENT Head: Normocephalic, Atraumatic Eyes: Normal Pupils: PERRL - Respiratory Respiratory status: No respiratory distress Breath sounds: Rhonchi, Wheezing Chest palpation: Normal - Cardiovascular Rhythm: Regular Heart sounds: Normal auscultation Murmur: No - Abdominal Inspection: Normal Distension: No distension Bowel sounds: Normal Tenderness: Nontender Organomegaly: No organomegaly - Back Back: Normal, Nontender - Extremities General upper extremity: Normal inspection, Nontender, Normal color, Normal ROM , Normal temperature General lower extremity: Normal inspection, Nontender, Normal color, Normal ROM , Normal temperature, Normal weight bearing. No: Patrick's sign - Neurological Neuro grossly intact: Yes Cognition: Normal Orientation: AAOx4 [place] Coma Scale Eye Opening: Spontaneous [place] Coma Scale Verbal: Oriented [place] Coma Scale Motor: Obeys Commands Marshall Coma Scale Total: 15 Speech: Normal Motor strength normal: LUE, RUE, LLE, RLE Sensory: Normal - Psychological Associated symptoms: Normal affect, Normal mood - Skin Skin Temperature: Warm Skin Moisture: Dry Skin Color: Normal Course - Vital Signs Vital signs: Temp Pulse Resp BP Pulse Ox 99 F 94 20 134/67 H 95 07/13/17 11:24 07/13/17 11:24 07/13/17 11:24 07/13/17 11:24 07/13/17 11:24
--- NOTE | 2017-07-13 12:03 | ER Document Report ---
ED General - General Chief Complaint: Chest Pain Stated Complaint: CHEST PAIN Time Seen by Provider: 07/13/17 11:43 Mode of Arrival: Ambulatory Information source: Patient Notes: 66-year-old male history of COPD who stopped smoking 2 months ago presents with complaints of shortness of breath productive cough chest wall pain. Patient notes over the past few days he has had a white sputum denies any fevers or chills notes symptoms worsen when he walks around and makes him cough more TRAVEL OUTSIDE OF THE [place] IN LAST 30 DAYS: No - HPI Onset: Last week Onset/Duration: Persistent, Worse Quality of pain: Cramping Severity: Mild Pain Level: 1 Associated symptoms: Productive cough, Shortness of breath Exacerbated by: Walking, Coughing, Deep breathing Relieved by: Denies Similar symptoms previously: Yes Recently seen / treated by doctor: Yes - Recent Pseudomonas pneumonia - Related Data Allergies/Adverse Reactions: budesonide [From Symbicort] Allergy (Verified 04/08/17 09:21) formoterol [From Symbicort] Allergy (Verified 04/08/17 09:21) naproxen Allergy (Verified 04/08/17 09:21) Past Medical History - Social History Smoking Status: Former Smoker Cigarette use (# per day): No Chew tobacco use (# tins/day): No Smoking Education Provided: No Frequency of alcohol use: None Drug Abuse: None Family History: Reviewed & Not Pertinent - Past Medical History Cardiac Medical History: Denies: Hx Hypercholesterolemia, Hx Hypertension Pulmonary Medical History: Reports: Hx COPD, Hx Pneumonia Renal/ Medical History: Denies: Hx Peritoneal Dialysis - Immunizations Hx Diphtheria, Pertussis, Tetanus Vaccination: Yes Hx Pneumococcal Vaccination: 10/27/08 Review of Systems - Review of Systems Notes: REVIEW OF SYSTEMS: CONSTITUTIONAL : Denies fever, chills, or sweats. Denies recent illness. EENT: Denies eye, ear, throat, or mouth pain or symptoms. Denies nasal or sinus congestion or discharge. Denies throat, tongue, or mouth swelling or difficulty swallowing. CARDIOVASCULAR: Denies chest pain. Denies palpitations or racing or irregular heart beat. Denies ankle edema. RESPIRATORY: Admits to cough wheezing difficulty breathing chest wall pain when he coughs GASTROINTESTINAL: Denies abdominal pain or distention. Denies nausea, vomiting , or diarrhea. Denies blood in vomitus, stools, or per rectum. Denies black, tarry stools. Denies constipation. GENITOURINARY: Denies difficulty urinating, painful urination, burning, frequency, blood in urine, or discharge. MUSCULOSKELETAL: Denies back or neck pain or stiffness. Denies joint pain or swelling. SKIN: Denies rash, lesions or sores. HEMATOLOGIC : Denies easy bruising or bleeding. LYMPHATIC: Denies swollen, enlarged glands. NEUROLOGICAL: Denies confusion or altered mental status. Denies passing out or loss of consciousness. Denies dizziness or lightheadedness. Denies headache. Denies weakness or paralysis or loss of use of either side. Denies problems with gait or speech. Denies sensory loss, numbness, or tingling. Denies seizures. PSYCHIATRIC: Denies anxiety or stress. Denies depression, suicidal ideation, or homicidal ideation. ALL OTHER SYSTEMS REVIEWED AND NEGATIVE. Dictation was performed using [employer] voice recognition software PHYSICAL EXAMINATION: GENERAL: Well-appearing, well-nourished and in no acute distress. HEAD: Atraumatic, normocephalic. EYES: Pupils equal round and reactive to light, extraocular movements intact, sclera anicteric, conjunctiva are normal. ENT: Nares patent, oropharynx clear without exudates. Moist mucous membranes. NECK: Normal range of motion, supple without lymphadenopathy LUNGS: Coarse wheezing left upper lobe left lower lobe HEART: Regular rate and rhythm without murmurs ABDOMEN: Soft, nontender, nondistended abdomen. No guarding, no rebound. No masses appreciated. Musculoskeletal: Normal range of motion, no pitting or edema. No cyanosis. NEUROLOGICAL: Cranial nerves grossly intact. Normal speech, normal gait. Normal sensory, motor exams PSYCH: Normal mood, normal affect. SKIN: Warm, Dry, normal turgor, no rashes or lesions noted. Physical Exam - Vital signs Vitals: Temp Pulse Resp BP Pulse Ox 99 F 94 20 134/67 H 95 07/13/17 11:24 07/13/17 11:24 07/13/17 11:24 07/13/17 11:24 07/13/17 11:24 Course - Re-evaluation Re-evalutation: 07/13/17 12:36 Patient has COPD exacerbation, no signs of pneumonia at this time, breathing treatments will be given 07/13/17 13:53 Patient notes improvement of his breathing, he is being ambulated now 07/13/17 14:02 Patient ambulated with no difficulty he is stable for discharge After performing a Medical Screening Examination, I estimate there is LOW risk for ACUTE CORONARY SYNDROME, RESPIRATORY FAILURE, SEPSIS OR MENINGITIS, thus I consider the discharge disposition reasonable. I have reevaluated this patient multiple times and no significant life threatening changes are noted. The patient and I have discussed the diagnosis and risks, and we agree with discharging home with close follow-up. We also discussed returning to the Emergency Department immediately if new or worsening symptoms occur. We have discussed the symptoms which are most concerning (e.g., changing or worsening pain, trouble swallowing or breathing, neck stiffness, fever) that necessitate immediate return. - Vital Signs Vital signs: Temp Pulse Resp BP Pulse Ox 99 F 94 20 134/67 H 95 07/13/17 11:24 07/13/17 11:24 07/13/17 11:24 07/13/17 11:24 07/13/17 11:24 - Laboratory Result Diagrams: 07/13/17 12:04 07/13/17 12:04 Laboratory results interpreted by me: 07/13/17 07/13/17 12:04 12:04 RBC 4.26 L Hgb 13.1 L RDW 14.5 H Eosinophils % 10.9 H Absolute Eosinophils 0.8 H AST 12 L Creatine Kinase 194 H - Diagnostic Test Radiology reviewed: Image reviewed, Reports reviewed - EKG Interpretation by Fl EKG shows normal: Sinus rhythm, [place], Intervals, QRS Complexes Discharge - Discharge Clinical Impression: COPD exacerbation, SOB (shortness of breath) Condition: Stable Disposition: HOME, SELF-CARE Instructions: Chronic Obstructive Lung Disease ([facility]) Prescriptions: Prednisone [Deltasone 20 mg Tablet] 3 tab PO DAILY 5 Days tablet Referrals: WHITNEY RÍOS MD [Primary Care Provider] - Follow up tomorrow
--- NOTE | 2017-07-13 12:21 | RADIOLOGY REPORT (SQ) ---
EXAM DESCRIPTION: CHEST PA/LAT COMPLETED DATE/TIME: 07/13/2017 12:12 pm REASON FOR STUDY: copd pna sob COMPARISON: 06/25/2017 and 04/16/2017. NUMBER OF VIEWS: Two view. TECHNIQUE: Frontal and lateral radiographic views of the chest acquired. LIMITATIONS: None. FINDINGS: LUNGS AND PLEURA: Chronic scarring. No focal infiltrates, masses or pneumothorax. No pleu ral effusion. Attenuated blood vessels and flattened jessica-diaphragms. MEDIASTINUM AND HILAR STRUCTURES: No masses. No contour abnormalities. HEART AND VASCULAR STRUCTURES: Heart normal in size and contour. No evidence for failure. BONES: No acute findings. HARDWARE: None in the chest. OTHER: No other significant finding. IMPRESSION: COPD. CHRONIC SCARRING. NO ACUTE RADIOGRAPHIC FINDING IN THE CHEST. TECHNICAL DOCUMENTATION: JOB ID: [id number] [employer]- All Rights Reserved
[2017-07-13 12:24] LABS: ABSOLUTE EOSINOPHILS # (AUTO) 0.8 10^3/uL (0.0-0.6); ABSOLUTE LYMPHOCYTES (AUTO) 1.9 10^3/uL (0.5-4.7); ABSOLUTE MONOCYTES (AUTO) 0.4 10^3/uL (0.1-1.4); ABSOLUTE NEUT (AUTO) 4.4 10^3/uL (1.7-8.2); BASOPHILS % (AUTO) 0.6 % (0-2); EOSINOPHILS % (AUTO) 10.9 % (0-6); HEMATOCRIT 38.2 % (37.9-51.0); HEMOGLOBIN 13.1 g/dL (13.5-17.0); HGB HCT DIFFERENCE 1.1; LYMPHOCYTES % (AUTO) 25.1 % (13-45); MEAN CORPUSCULAR HEMOGLOBIN 30.7 pg (27.0-33.4); MEAN CORPUSCULAR HGB CONC 34.3 g/dL (32.0-36.0); MEAN CORPUSCULAR VOLUME 90 fl (80-97); MONOCYTES % (AUTO) 5.1 % (3-13); RED BLOOD COUNT 4.26 10^6/uL (4.35-5.55); RED CELL DISTRIBUTION WIDTH 14.5 % (11.5-14.0); SEGMENTED NEUTROPHILS % (AUTO) 58.3 % (42-78); WHITE BLOOD COUNT 7.6 10^3/uL (4.0-10.5)
[2017-07-13] MEDS ORDERED: HYDROCODONE BIT/HOMATROPINE 5-1.5 MG TABLET PO ONE (12:33)
[2017-07-13 12:40] LABS: ALANINE AMINOTRANSFERASE 32 U/L (21-72); ALBUMIN 3.7 g/dL (3.5-5.0); ALKALINE PHOSPHATASE 70 U/L (38-126); ANION GAP 10 (5-19); ASPARTATE AMINO TRANSFERASE 12 U/L (17-59); BILIRUBIN,DIRECT 0.4 mg/dL (0.0-0.4); BILIRUBIN,TOTAL 0.4 mg/dL (0.2-1.3); BLOOD UREA NITROGEN 20 mg/dL (7-20); CALCIUM 9.8 mg/dL (8.4-10.2); CARBON DIOXIDE 23 mmol/L (22-30); CHLORIDE 106 mmol/L (98-107); CREATINE KINASE 194 U/L (55-170); CREATININE RESULT 1.13 mg/dL (0.52-1.25); GLUCOSE 103 mg/dL (75-110); POTASSIUM 4.2 mmol/L (3.6-5.0); SODIUM 138.7 mmol/L (137-145); TOTAL PROTEIN 6.3 g/dL (6.3-8.2)
[2017-07-13 12:50] LABS: CREATINE KINASE MB 2.57 ng/mL (<4.55)
[2017-07-13 12:52] LABS: TROPONIN I < 0.012 ng/mL
[2017-07-13 14:26] VITALS: BP 105/94
--- NOTE | 2017-07-13 23:34 | EKG REPORT ---
SEVERITY:- NORMAL ECG - SINUS RHYTHM : Confirmed by: Vladimir Bhat 13-Jul-2017 23:33:56
== END 2017-07-13 14:26 | disposition home or self-care (01) ==
LOC: ER 11:10
DX: J44.1 Chronic obstructive pulmonary disease with (acute) exacerbation (principal); R06.02 Shortness of breath; R07.9 Chest pain, unspecified; R05 Cough; R07.89 Other chest pain; Z87.891 Personal history of nicotine dependence
CPT/HCPCS: 93005; 94640 ×2; 99285; 36415; 82553; 82550; 85025; 80053; 84484; 71020; 93010; A9270 ×4; J7512; J7620

== ENCOUNTER 2017-08-04 12:57 | Emergency (ER) | payer MEDICARE, OTHER ==
[2017-08-04] MEDS ORDERED: IPRATROPIUM/ALBUTEROL 0.5-2.5 MG/3 ML AMPUL NEB ONE ×2 (13:15→18:17)
[2017-08-04] MEDS ORDERED: ALBUTEROL SULFATE 0.083% NEB 2.5 MG/3 ML AMPUL NEB ONE ×2 (13:15→18:16)
--- NOTE | 2017-08-04 13:37 | RADIOLOGY REPORT (SQ) ---
EXAM DESCRIPTION: CHEST SINGLE VIEW COMPLETED DATE/TIME: 08/04/2017 1:28 pm REASON FOR STUDY: sob COMPARISON: 07/13/2017 EXAM PARAMETERS: NUMBER OF VIEWS: One view. TECHNIQUE: Single frontal radiographic view of the chest acquired. RADIATION DOSE: NA LIMITATIONS: None. FINDINGS: LUNGS AND PLEURA: There is persistent opacification medial right base. MEDIASTINUM AND HILAR STRUCTURES: No masses. Contour normal. HEART AND VASCULAR STRUCTURES: Heart normal in size. Normal vasculature. BONES: No acute findings. HARDWARE: None in the chest. OTHER: No other significant finding. IMPRESSION: There is ill-defined persistent opacification in the medial right base suggestive of sca rring. No acute cardiopulmonary disease is appreciated. TECHNICAL DOCUMENTATION: JOB ID: [id number]
[2017-08-04 13:49] LABS: ABSOLUTE EOSINOPHILS # (AUTO) 0.8 10^3/uL (0.0-0.6); ABSOLUTE MONOCYTES (AUTO) 0.4 10^3/uL (0.1-1.4); ABSOLUTE NEUT (AUTO) 4.7 10^3/uL (1.7-8.2); BASOPHILS % (AUTO) 0.5 % (0-2); EOSINOPHILS % (AUTO) 9.9 % (0-6); HEMATOCRIT 39.1 % (37.9-51.0); HGB HCT DIFFERENCE -0.1; LYMPHOCYTES % (AUTO) 25.5 % (13-45); MEAN CORPUSCULAR HEMOGLOBIN 29.8 pg (27.0-33.4); MEAN CORPUSCULAR HGB CONC 33.4 g/dL (32.0-36.0); MEAN CORPUSCULAR VOLUME 89 fl (80-97); MONOCYTES % (AUTO) 5.1 % (3-13); RED BLOOD COUNT 4.38 10^6/uL (4.35-5.55); RED CELL DISTRIBUTION WIDTH 14.4 % (11.5-14.0)
[2017-08-04 13:56] LABS: PROTHROMBIN TIME 12.5 SEC (11.4-15.4)
[2017-08-04 14:07] LABS: ALANINE AMINOTRANSFERASE 30 U/L (21-72); ALBUMIN 3.8 g/dL (3.5-5.0); ALKALINE PHOSPHATASE 82 U/L (38-126); ANION GAP 12 (5-19); ASPARTATE AMINO TRANSFERASE 18 U/L (17-59); BILIRUBIN,DIRECT 0.4 mg/dL (0.0-0.4); BILIRUBIN,TOTAL 0.7 mg/dL (0.2-1.3); BLOOD UREA NITROGEN 17 mg/dL (7-20); CALCIUM 9.9 mg/dL (8.4-10.2); CARBON DIOXIDE 24 mmol/L (22-30); CHLORIDE 104 mmol/L (98-107); CREATINE KINASE 493 U/L (55-170); CREATININE RESULT 1.23 mg/dL (0.52-1.25); GLUCOSE 98 mg/dL (75-110); POTASSIUM 4.5 mmol/L (3.6-5.0); SODIUM 140.1 mmol/L (137-145); TOTAL PROTEIN 6.4 g/dL (6.3-8.2)
[2017-08-04 14:19] LABS: CREATINE KINASE MB 5.91 ng/mL (<4.55)
[2017-08-04 14:22] LABS: TROPONIN I < 0.012 ng/mL
[2017-08-04] MEDS ORDERED: DOXYCYCLINE HYCLATE INJ 100 MG VIAL IV ONE (15:01)
[2017-08-04] MEDS ORDERED: MAGNESIUM SULFATE/D5W 1 GM/100 ML RTUPB IV ONE (15:02)
--- NOTE | 2017-08-04 15:54 | ER Document Report ---
ED General - General TRAVEL OUTSIDE OF THE [place] IN LAST 30 DAYS: No - HPI Patient complains to provider of: Shortness of breath <TAMIKO AVALOS - Last Filed: 08/04/17 15:48> <RADHA SANTIAGO - Last Filed: 08/04/17 19:42> - General Chief Complaint: Shortness Of Breath Stated Complaint: DIFFICULTY BREATHING Time Seen by Provider: 08/04/17 13:12 - HPI Notes: Patient coming in for evaluation shortness of breath. Patient has a history of COPD. Patient states recently was treated for pneumonia with doxycycline has been off antibiotics for approximately 2 weeks. Denies any fevers at home denies any productive sputum. Patient was not hypoxic upon arrival. Patient was transported by EMS severe tachypnea. Patient was given Solu-Medrol and breathing treatment patient states improved however does have coarse audible wheezing upon my evaluation. Denies any recent travel patient states stop smoking approximately 2 months prior to arrival denies fevers chills abdominal pain nausea vomiting diarrhea (TAMIKO AVALOS) - Related Data Allergies/Adverse Reactions: budesonide [From Symbicort] Allergy (Verified 04/08/17 09:21) formoterol [From Symbicort] Allergy (Verified 04/08/17 09:21) naproxen Allergy (Verified 04/08/17 09:21) Past Medical History - Social History Smoking Status: Former Smoker Chew tobacco use (# tins/day): No Frequency of alcohol use: Occasional Drug Abuse: None Family History: Reviewed & Not Pertinent - Past Medical History Cardiac Medical History: Denies: Hx Hypercholesterolemia, Hx Hypertension Pulmonary Medical History: Reports: Hx COPD, Hx Pneumonia Renal/ Medical History: Denies: Hx Peritoneal Dialysis - Immunizations Hx Diphtheria, Pertussis, Tetanus Vaccination: Yes Hx Pneumococcal Vaccination: 10/27/08 <TAMIKO AVALOS - Last Filed: 08/04/17 15:48> Review of Systems - Review of Systems Constitutional: No symptoms reported EENT: No symptoms reported Cardiovascular: No symptoms reported Respiratory: Short of breath Gastrointestinal: No symptoms reported Genitourinary: No symptoms reported Male Genitourinary: No symptoms reported Musculoskeletal: No symptoms reported Skin: No symptoms reported Hematologic/Lymphatic: No symptoms reported Neurological/Psychological: No symptoms reported -: Yes All other systems reviewed and negative <TAMIKO AVALOS - Last Filed: 08/04/17 15:48> Physical Exam - Vital signs Interpretation: Normal - General General appearance: Appears well, Alert - HEENT Head: Normocephalic, Atraumatic Eyes: Normal Pupils: PERRL - Respiratory Respiratory status: No respiratory distress Chest status: Nontender Breath sounds: Rhonchi, Wheezing Chest palpation: Normal - Cardiovascular Rhythm: Regular Heart sounds: Normal auscultation Murmur: No - Abdominal Inspection: Normal Distension: No distension Bowel sounds: Normal Tenderness: Nontender Organomegaly: No organomegaly - Back Back: Normal, Nontender - Extremities General upper extremity: Normal inspection, Nontender, Normal color, Normal ROM , Normal temperature General lower extremity: Normal inspection, Nontender, Normal color, Normal ROM , Normal temperature, Normal weight bearing. No: Patrick's sign - Neurological Neuro grossly intact: Yes Cognition: Normal Orientation: AAOx4 [place] Coma Scale Eye Opening: Spontaneous [place] Coma Scale Verbal: Oriented [place] Coma Scale Motor: Obeys Commands [place] Coma Scale Total: 15 Speech: Normal Motor strength normal: LUE, RUE, LLE, RLE Sensory: Normal - Psychological Associated symptoms: Normal affect, Normal mood - Skin Skin Temperature: Warm Skin Moisture: Dry Skin Color: Normal <TAMIKO AVALOS - Last Filed: 08/04/17 15:48> - Vital signs Vitals: Pulse Ox 97 08/04/17 13:08 Course - Laboratory Result Diagrams: 08/04/17 13:20 08/04/17 13:20 <TAMIKO AVALOS - Last Filed: 08/04/17 15:48> - Laboratory Result Diagrams: 08/04/17 13:20 08/04/17 13:20 <RADHA SANTIAGO - Last Filed: 08/04/17 19:42> - Re-evaluation Re-evalutation: 08/04/17 15:50 Patient's chest x-ray shows right middle lobe scar. Laboratory findings did not show any critical abnormalities. Discussed with PCP recommended CT scan rule out PE and further evaluation if normal states still placed patient on doxycycline patient can be discharged home. Unfortunately I will have to sign this patient out to Dr. Santiago. CT scan is pending at the CT scan of other breathing treatments and magnesium will recommend the patient be ambulated. ( TAMIKO AVALOS) 08/04/17 19:40 Sign-out from Dr. Avalos: 66-year-old male with COPD exacerbation. CTA pending. CTA does not show any pulmonary embolism. After DuoNeb, patient ambulated with his lowest oxygenation sats being 95%. Repeat lung exam does not reveal any wheezing. Dr. Robles will see patient in the morning. Patient given strict return precautions and he understands. (RADHA SANTIAGO) - Vital Signs Vital signs: Temp Pulse Resp BP Pulse Ox 98.1 F 100 21 H 141/82 H 94 08/04/17 13:13 08/04/17 13:13 08/04/17 19:01 08/04/17 19:01 08/04/17 19:01 - Laboratory Laboratory results interpreted by me: 08/04/17 08/04/17 08/04/17 13:20 13:20 13:20 Hgb 13.0 L RDW 14.4 H Eosinophils % 9.9 H Absolute Eosinophils 0.8 H VBG pH VBG pCO2 Est GFR (Non-Af Amer) 59 L Creatine Kinase 493 H CK-MB (CK-2) 5.91 H 08/04/17 13:20 Hgb RDW Eosinophils % Absolute Eosinophils VBG pH 7.47 H VBG pCO2 34.4 L Est GFR (Non-Af Amer) Creatine Kinase CK-MB (CK-2) Discharge <TAMIKO AVALOS - Last Filed: 08/04/17 15:48> <RADHA SANTIAGO - Last Filed: 08/04/17 19:42> - Discharge Clinical Impression: COPD (chronic obstructive pulmonary disease) Qualifiers: COPD type: unspecified COPD Qualified Code(s): J44.9 - Chronic obstructive pulmonary disease, unspecified Condition: Good Disposition: HOME, SELF-CARE Instructions: Bronchitis ([facility]), Chronic Obstructive Lung Disease ([facility]) Additional Instructions: Take medications as prescribed. Return to the ER symptoms worsen. Please follow-up with Dr. Robles or his PA tomorrow. Prescriptions: Doxycycline Hyclate 100 mg PO BID #20 capsule Prednisone [Deltasone 20 mg Tablet] 3 tab PO DAILY 5 Days tablet Referrals: WHITNEY ROBLES MD [Primary Care Provider] - Follow up tomorrow
--- NOTE | 2017-08-04 16:36 | RADIOLOGY REPORT (SQ) ---
EXAM DESCRIPTION: CTA CHEST COMPLETED DATE/TIME: 08/04/2017 4:21 pm REASON FOR STUDY: sob COMPARISON: 09/13/2016 TECHNIQUE: CT scan of the chest performed using helical scanning technique with dynamic intravenous contrast injection. Images reviewed with lung, soft tissue and bone windows. Reconstructed coronal and sagittal MPR images reviewed. Additional 3 dimensional post-processing performed to develop Maximal Intensity Projection images (OR P). All images stored on PACS. All CT scanners at this facility use dose modulation, iterative reconstruction, and/or weight based d osing when appropriate to reduce radiation dose to as low as reasonably achievable (ALARA). [facility]: Dose Right [facility]: CareDose [facility]: Dose Right [facility]: Teradose 4D [facility]: Scoot & Doodle CONTRAST TYPE AND DOSE: contrast/concentration: Isovue 370.00 mg/ml; Total Contrast Delivered: 74.0 ml; Total Saline Delivered: 100.0 ml Contrast bolus optimized for the pulmonary arteries. Not diagnostic for the aorta. RENAL FUNCTION: CREATININE MEASURES 1.23 RADIATION DOSE: Up-to-date CT equipment and radiation dose reduction techniques were employed. CTDIv ol: 13.2 - 15.0 mGy. DLP: 545 mGy-cm. . LIMITATIONS: None. FINDINGS: LUNGS AND PLEURA: Mild paraseptal emphysema. Stable rounded atelectasis right lower lobe with additional areas of scarring. No new airspace disease, pleural effusion, or pneumothorax. AORTA AND GREAT VESSELS: No aneurysm. Contrast bolus not optimized for the aorta. HEART: No pericardial effusion. No significant coronary artery calcifications. PULMONARY ARTERIES: No emboli visualized in the main pulmonary arteries or the segmental branches. HILAR AND MEDIASTINAL STRUCTURES: No identified masses or abnormal nodes. HARDWARE: None in the chest. UPPER ABDOMEN: No significant findings. Limited exam. THYROID AND OTHER SOFT TISSUES: No masses. No adenopathy. BONES: No acute or significant finding. 3D MIPS: Confirm above findings. OTHER: No other significant finding. IMPRESSION: NO PULMONARY EMBOLI. NO SIGNIFICANT CHANGE FROM PRIOR STUDY. COMMENT: Quality ID # [id number]: Final reports with documentation of one or more dose reduction techniques (e.g., Automated exposure control, adjustment of the mA and/or kV according to patient size, use of iterative reconstruction technique) TECHNICAL DOCUMENTATION: JOB ID: [id number]- All Rights Reserved
[2017-08-04] MEDS ORDERED: DOXYCYCLINE HYCLATE 100 MG TABLET PO ONE (18:15)
--- NOTE | 2017-08-04 18:19 | EKG REPORT ---
SEVERITY:- NORMAL ECG - SINUS RHYTHM : Confirmed by: Lucho Escalona MD 04-Aug-2017 18:18:27
[2017-08-04 19:03] LABS: VENOUS BLOOD BASE EXCESS 1.3 mmol/L; VENOUS BLOOD HCO3 24.4 mmol/L (20-32); VENOUS BLOOD PCO2 34.4 mmHg (35-63); VENOUS BLOOD PH 7.47 (7.30-7.42)
[2017-08-04 20:24] VITALS: BP 161/87
== END 2017-08-04 20:24 | disposition home or self-care (01) ==
LOC: ER 12:57
DX: J44.1 Chronic obstructive pulmonary disease with (acute) exacerbation (principal); R06.02 Shortness of breath; I10 Essential (primary) hypertension; Z87.01 Personal history of pneumonia (recurrent); Z87.891 Personal history of nicotine dependence; Z88.8 Allergy status to other drugs, medicaments and biological substances
CPT/HCPCS: 93005; 94640 ×2; 99285; 96365; 36415; 82553; 82550; 85025; 85610; 80053; 84484; 82803; 71010; 71275; 93010; J3475; A9270 ×2; J7620

== ENCOUNTER 2018-04-16 15:04 | Emergency (ER) | payer OTHER, MEDICARE ==
[2018-04-16] MEDS ORDERED: HYDROCODONE/ACETAMINOPHEN 5-325 MG TABLET PO ONE (15:35)
[2018-04-16] MEDS ORDERED: DIPH/PERTUSS(ACELL)/TETANUS VAC/PF 0.5 ML SYR (>=10YO) IM ONE (15:35)
[2018-04-16] MEDS ORDERED: LIDOCAINE 1% INJ-PF (10 MG/ML) 30 ML SDV INJ ONE (16:28)
--- NOTE | 2018-04-16 16:35 | ER Document Report ---
ED Wound - General Chief Complaint: Laceration Stated Complaint: HAND LACERATION Time Seen by Provider: 04/16/18 15:16 Mode of Arrival: Ambulatory Information source: Patient TRAVEL OUTSIDE OF THE [place] IN LAST 30 DAYS: No - HPI Patient complains to provider of: Laceration Occurred: Just prior to arrival Notes: Patient is here with complaints of finger lacerations. He states that he was hanging a light in his garage when it slipped and fell causing a laceration to his right middle and ring finger. States that the skin from the ring finger is missing, but this laceration seems to be bleeding a lot and is having trouble getting it to stop. The laceration to the middle finger still has some skin intact. No blood thinners. He is unsure of his last tetanus shot. He denies any numbness, tingling, weakness. He denies any nausea, vomiting, diarrhea. He denies any other injuries or complaints at this time. No redness. No fever. No other complaints. - Related Data Allergies/Adverse Reactions: budesonide [From Symbicort] Allergy (Verified 04/08/17 09:21) formoterol [From Symbicort] Allergy (Verified 04/08/17 09:21) naproxen Allergy (Verified 04/08/17 09:21) Past Medical History - Social History Smoking Status: Never Smoker Chew tobacco use (# tins/day): No Frequency of alcohol use: None Drug Abuse: None Family History: Reviewed & Not Pertinent Patient has suicidal ideation: No Patient has homicidal ideation: No - Past Medical History Cardiac Medical History: Denies: Hx Hypercholesterolemia, Hx Hypertension Pulmonary Medical History: Reports: Hx COPD, Hx Pneumonia Renal/ Medical History: Denies: Hx Peritoneal Dialysis - Immunizations Hx Diphtheria, Pertussis, Tetanus Vaccination: Yes Hx Pneumococcal Vaccination: 10/27/08 Review of Systems - Review of Systems -: Yes All other systems reviewed and negative Physical Exam - Vital signs Vitals: Temp Pulse Resp BP Pulse Ox 98.4 F 88 16 143/77 H 94 04/16/18 15:09 04/16/18 15:09 04/16/18 15:09 04/16/18 15:09 04/16/18 15:09 - Notes Notes: GENERAL: alert, cooperative, nontoxic, no distress. HEAD: normocephalic, atraumatic EYES: conjunctiva pink without discharge, no external redness or swelling. EARS: no external swelling, no external redness NOSE: atraumatic, no external swelling MOUTH/THROAT: mucous membranes moist and pink NECK: soft, supple, full range of motion, no meningismus. CHEST: no distress, lungs clear and equal throughout. No wheezing, rales, rhonchi. CARDIAC: regular rate and rhythm, no murmur, normal capillary refill, normal pulses. BACK: full range of motion, no CVA tenderness. EXTREMITIES: full range of motion of all extremities. No redness, no swelling. NEURO: alert and oriented 3, no focal deficits, full range of motion of all extremities. PYSCH: appropriate mood, affect. Patient is cooperative. SKIN: pink, warm, dry, no rash. Avulsion laceration to the right ring finger. This involves the pad of the distal phalanx. There is no skin to suture. There is noted to have some active bleeding that is easily controlled with pressure. I applied a quick clot/pressure dressing to the area and the bleeding has stopped. Patient is also noted to have a 2 cm avulsion/flap laceration to the pad of the distal phalanx of the right middle finger. Minimal amount of bleeding noted. Normal cap refill and sensation distally. There is no redness. Full flexion and extension with no tendon laceration. Course - Re-evaluation Re-evalutation: 04/16/18 16:33 Patient is nontoxic-appearing with stable vitals. The patient lacerated his right middle and ring finger earlier today while hanging a light in his garage. He has a deep avulsion laceration to the ring finger. A quick clot pressure dressing was applied and bleeding has been controlled. Laceration to the middle finger was anesthetized, cleaned and closed with sutures. His tetanus was given. He was given a dose of Cam[place] in the emergency department. He would just be discharged home with instructions to clean the wound twice a day with soap and water. Follow-up in 10 days for suture removal, sooner for increasing pain, fever, redness, drainage, any further concerns. the patient is noted to have elevated blood pressure during today's emergency department visit. The patient was informed of this finding. The patient was instructed that this may be related to pre-hypertension and requires further evaluation with a primary care provider. The patient has no hypertensive symptoms at this time. The patient's emergency department workup and current diagnosis were explained to the patient and or family. Follow-up instructions were provided. Medications if prescribed were discussed. Instructions for when to return to the emergency department including specific worrisome symptoms were discussed with the patient and/or family. - Vital Signs Vital signs: Temp Pulse Resp BP Pulse Ox 98.4 F 88 16 143/77 H 94 04/16/18 15:04/16/18 15:04/16/18 15:04/16/18 15:04/16/18 15:09 Procedures - Laceration/Wound Repair right middle finger Wound length (cm): 2 Wound's Depth, Shape: Flap Laceration pre-procedure: Sterile PPE donned, Sterile drapes applied, Shur- Clens applied Anesthetic type: 1% Lidocaine Wound explored: Clean, No foreign body removed Wound Repaired With: Sutures Suture Size/Type: 5:0 Number of Sutures: 5 Layer Closure?: No Post-procedure wound care: Sterile dressing applied Post-procedure NV exam normal: Yes Complications: No Discharge - Discharge Clinical Impression: Laceration of right middle finger Qualifiers: Encounter type: initial encounter Damage to nail status: without damage Foreign body presence: without foreign body Qualified Code(s): S61.212A - Laceration without foreign body of right middle finger without damage to nail, initial encounter Laceration of ring finger Qualifiers: Encounter type: initial encounter Damage to nail status: without damage Foreign body presence: without foreign body Laterality: right Qualified Code(s) : S61.214A - Laceration without foreign body of right ring finger without damage to nail, initial encounter Condition: Stable Disposition: HOME, SELF-CARE Instructions: Antibiotic Ointment Protection ([facility]), Laceration Care ([facility]), Tetanus Immunization Given ([facility]), Soap Cleansing ([facility]) Additional Instructions: Clean wound twice a day with soap and water. Follow-up with your doctor in 10- 12 days for suture removal. Remove the outer covering of the dressing on your ring finger and put another nonstick dressing on it in the next couple of days. Do not pull off the dressing that is not directly on the wound. This will eventually come off on its own. Follow-up sooner for increasing pain, fever, redness, drainage, numbness, tingling, weakness, any further concerns. Your blood pressure was elevated during today's visit. Have this rechecked with your doctor. Forms: Elevated Blood Pressure, Smoking Cessation Education Referrals: WHITNEY RÍOS MD [Primary Care Provider] - Follow up as needed
[2018-04-16 17:26] VITALS: BP 138/82
== END 2018-04-16 17:24 | disposition home or self-care (01) ==
LOC: ER 15:04
PROC: 0HQFXZZ Repair Right Hand Skin, External Approach (ICD-10-PCS; principal; 2018-04-16)
DX: S61.212A Laceration without foreign body of right middle finger without damage to nail, initial encounter (principal); S61.214A Laceration without foreign body of right ring finger without damage to nail, initial encounter; W25.XXXA Contact with sharp glass, initial encounter; Y92.008 Other place in unspecified non-institutional (private) residence as the place of occurrence of the external cause; J44.9 Chronic obstructive pulmonary disease, unspecified; R03.0 Elevated blood-pressure reading, without diagnosis of hypertension; Z23 Encounter for immunization
CPT/HCPCS: 99283; 90471; 90715; 12001; J3490

== ENCOUNTER → 2018-05-11 | Outpatient (CLI) | payer MEDICARE, OTHER ==
--- NOTE | 2018-05-11 10:27 | RADIOLOGY REPORT (SQ) ---
EXAM DESCRIPTION: U/S ABDOMEN COMPLETE W/DOPPLER COMPLETED DATE/TIME: 05/11/2018 10:11 am REASON FOR STUDY: UMBLICAL HERNIA K42.9 UMBILICAL HERNIA WITHOUT OBSTRUCTION OR GANGRENE COMPARISON: None. TECHNIQUE: Dynamic and static grayscale images acquired of the abdomen and recorded on PACS. Additio nal selected color Doppler and spectral images recorded. LIMITATIONS: None. FINDINGS: PANCREAS: No masses. Visualized pancreatic duct normal caliber. LIVER: Fatty liver. The liver measures 15.2 cm, normal size. LIVER VASCULATURE: Normal directional flow of the main portal vein and hepatic veins. GALLBLADDER: Echogenic non-shadowing gallstone. Very small amount of gallbladder sludge. The gallb ladder wall measures 2.4 mm, normal wall thickness. No pericholecystic fluid. ULTRASOUND-DETECTED CORREA'S SIGN: Negative. INTRAHEPATIC DUCTS AND COMMON DUCT: CBD measures 2.1 mm in diameter, normal. The intrahepatic ducts normal caliber. No filling defects. INFERIOR VENA CAVA: Normal flow. AORTA: No aneurysm. RIGHT KIDNEY: The right kidney measures 10.8 cm in length, normal size. A 4.3 x 4.5 x 4.0 cm cyst. Normal echogenicity. No hydronephrosis. No calcifications. LEFT KIDNEY: The left kidney measures 9.7 cm in length, normal size. Normal echogenicity. A 1.2 x 1 .1 x 1.1 cm cyst in the upper pole. No hydronephrosis. No calcifications. SPLEEN: The spleen measures 8.5 cm, normal size. No solid masses. PERITONEAL AND PLEURAL SPACES: No ascites or effusions. OTHER: Question of a small umbilical hernia. No evidence of peristaltic activity within bowel durin g Valsalva maneuver. IMPRESSION: 1 Small non-shadowing echogenic gallstone. 2 No evidence of biliary obstruction. 3. Fatty liver. 4. Question of a small umbilical hernia. 5. Bilateral renal cysts. TECHNICAL DOCUMENTATION: JOB ID: [id number] [employer]- All Rights Reserved Reading location - IP/workstation name: [email or web address]
== END ==
LOC: RAD 09:20
PROVIDERS: ATTEND Physician Assistant
DX: K42.9 Umbilical hernia without obstruction or gangrene (principal)
CPT/HCPCS: 76700; 93976

== ENCOUNTER → 2019-02-18 | Outpatient (CLI) | payer OTHER, MEDICARE ==
[2019-02-18 15:00] LABS: ANION GAP 5 (5-19); BLOOD UREA NITROGEN 22 mg/dL (7-20); CALCIUM 9.9 mg/dL (8.4-10.2); CARBON DIOXIDE 26 mmol/L (22-30); CHLORIDE 107 mmol/L (98-107); POTASSIUM 4.6 mmol/L (3.6-5.0); SODIUM 137.8 mmol/L (137-145)
[2019-02-18 15:02] LABS: GLUCOSE 62 mg/dL (75-110)
== END ==
LOC: OD 13:59
PROVIDERS: ATTEND Physician Assistant
DX: E87.5 Hyperkalemia (principal)
CPT/HCPCS: 36415; 80048

== ENCOUNTER 2019-03-18 12:05 | Emergency (ER) | payer OTHER, MEDICARE ==
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
[2019-03-18 15:13] VITALS: BP 124/76
== END 2019-03-18 15:19 | disposition home or self-care (01) ==
LOC: ER 12:05
DX: S50.811A Abrasion of right forearm, initial encounter (principal); S80.01XA Contusion of right knee, initial encounter; M25.561 Pain in right knee; V29.40XA Motorcycle driver injured in collision with unspecified motor vehicles in traffic accident, initial encounter; F17.200 Nicotine dependence, unspecified, uncomplicated; J44.9 Chronic obstructive pulmonary disease, unspecified
CPT/HCPCS: 99283

== ENCOUNTER → 2019-05-06 | Outpatient (CLI) | payer OTHER, MEDICARE ==
[2019-05-06 12:18] LABS: ANION GAP 8 (5-19); BLOOD UREA NITROGEN 20 mg/dL (7-20); CARBON DIOXIDE 28 mmol/L (22-30); CHLORIDE 102 mmol/L (98-107); GLUCOSE 118 mg/dL (75-110); POTASSIUM 4.9 mmol/L (3.6-5.0); SODIUM 138.4 mmol/L (137-145)
== END ==
LOC: OD 11:21
PROVIDERS: ATTEND Family Medicine
DX: E87.5 Hyperkalemia (principal)
CPT/HCPCS: 36415; 80048

== ENCOUNTER → 2020-06-21 | Outpatient (CLI) | payer MEDICARE, OTHER ==
--- NOTE | 2020-06-21 10:08 | RADIOLOGY REPORT (SQ) ---
EXAM DESCRIPTION: U/S ABD AORTIC SCREENING IMAGES COMPLETED DATE/TIME: 06/21/2020 9:42 am REASON FOR STUDY: ENCTR FOR SCREENING FOR CARDIOVASCULAR DISORDERS (Z13.6) Z13.6 ENCOUNTER FOR SCRE ENING FOR CARDIOVASCULAR DISORDERS Z00.00 ENCNTR FOR GENERAL ADULT MEDICAL EXAM W/O ABNORMAL FI J44. 9 CHRONIC OBSTRUCTIVE PULMONARY DISEASE, UNSPECIFIED COMPARISON: None. TECHNIQUE: Static and dynamic grayscale images acquired of the aorta and stored on PACs. Selected co brigido Doppler and spectral images recorded. LIMITATIONS: None. FINDINGS: AORTIC CALIBER MAXIMAL PROXIMAL: 1.9 x 1.7 cm. MID: 1.6 x 1.6 cm. DISTAL: 1.3 x 1.7 cm. ILIAC DIAMETER RIGHT: 1.2 x 0.8 cm. LEFT: 1.0 x 0.8 cm. OTHER: No other significant finding. IMPRESSION: NO ABDOMINAL AORTIC ANEURYSM. COMMENT: Aortic aneurysm imaging followup: Negative, no followup necessary. *Based upon the Society for Vascular Surgery Guidelines: J Vasc Surg. 2009 Oct;50(4 Suppl):S2-49 *For aortas of maximum diameter of 2.6-2.9 cm meeting the criteria for AAA (?1.5 x proximal normal se gment) TECHNICAL DOCUMENTATION: JOB ID: [id number] 2010 [employer]- All Rights Reserved Reading location - IP/workstation name: [email or web address]
--- NOTE | 2020-06-21 11:51 | RADIOLOGY REPORT (SQ) ---
EXAM DESCRIPTION: CT CHEST WITHOUT IMAGES COMPLETED DATE/TIME: 06/21/2020 11:03 am REASON FOR STUDY: COUGH (R05) Z13.6 ENCOUNTER FOR SCREENING FOR CARDIOVASCULAR DISORDERS Z00.00 EN CNTR FOR GENERAL ADULT MEDICAL EXAM W/O ABNORMAL FI J44.9 CHRONIC OBSTRUCTIVE PULMONARY DISEASE, UNS PECIFIED COMPARISON: 08/04/2017 TECHNIQUE: CT scan performed of the chest without intravenous contrast. Images reviewed with lung, soft tissue and bone windows. Reconstructed coronal and sagittal MPR images reviewed. All images st ored on PACS. All CT scanners at this facility use dose modulation, iterative reconstruction, and/or weight based d osing when appropriate to reduce radiation dose to as low as reasonably achievable (ALARA). [facility]: Dose Right [facility]: CareDose [facility]: Dose Right [facility]: Teradose 4D [facility]: Instinctiv RADIATION DOSE: CT Rad equipment meets quality standard of care and radiation dose reduction techniq ues were employed. CTDIvol: 5.5 mGy. DLP: 249 mGy-cm. mGy. LIMITATIONS: No technical limitations. FINDINGS: LUNGS AND PLEURA: Bilateral emphysematous changes. Subpleural blebs bilaterally right gre ater than left. Areas of parenchymal and subpleural scarring grossly stable from 2017. Chronic cons olidation in right lung base which is unchanged. There is a new ground-glass opacity in the right up per lobe. This measures 9.4 mm in size. Most likely related to chronic lung disease which is progre ssed. This however will need follow up. HILAR AND MEDIASTINAL STRUCTURES: No identified masses or abnormal nodes. No obvious aneurysm. HEART AND VASCULAR STRUCTURES: No aneurysm. No pericardial effusion. UPPER ABDOMEN: Stable right renal cysts. Gallstones. THYROID AND OTHER SOFT TISSUES: No masses. No adenopathy. BONES: No significant finding. HARDWARE: None in the chest. OTHER: No other significant findings. IMPRESSION: Grossly stable CT of the chest. There is a new 9.4 mm ground-glass opacity in the right upper lobe best demonstrated on series 4, image 53. Other changes appear chronic and are stable fro 2016. Please see below for recommended follow-up. COMMENT: Fleischner Criteria for Ground Glass Nodules: >6 mm ground glass single nodule: CT 6-12 mo, then CT every 2 yr until 5 yr TECHNICAL DOCUMENTATION: JOB ID: [id number] Quality ID # [id number]: Final reports with documentation of one or more dose reduction techniques (e.g., Au tomated exposure control, adjustment of the mA and/or kV according to patient size, use of iterative reconstruction technique) 2010 [employer]- All Rights Reserved Reading location - IP/workstation name: [email or web address]-
== END ==
LOC: RAD 09:14
PROVIDERS: ATTEND Family Medicine
DX: Z13.6 Encounter for screening for cardiovascular disorders (principal); J43.9 Emphysema, unspecified; F17.200 Nicotine dependence, unspecified, uncomplicated; R05 Cough; N28.1 Cyst of kidney, acquired; K80.80 Other cholelithiasis without obstruction; R91.1 Solitary pulmonary nodule
CPT/HCPCS: 71250; 76706